=== PATIENT | male | born 1950 | race Caucasian/White ===

== ENCOUNTER 2018-02-15 14:13 | Inpatient (IN) | payer OTHER ==
[2018-02-15] MEDS ORDERED: NA CHLORIDE 0.9% 1,000 ML ONE (15:41)
[2018-02-15] MEDS ORDERED: FENTANYL CITR 100 MCG/2 ML ONE (15:41)
[2018-02-15 15:55] LABS: Absolute Lymphocytes (CBC) 0.9 K/uL (0.7-4.9); Absolute Monocytes 1.1 K/uL (0.1-1.3); Absolute Neutrophil 6.8 K/uL (1.8-8.0); Eosinophils % 2.7 % (0-4.4); Hematocrit 35.9 % (39.6-49.0); Lymphocytes % 9.6 % (15.3-44.8); MCH 26.7 pg (27.0-35.0); MCV 81.8 fL (80-100); Monocytes % 12.1 % (3.3-12.3); RBC Red Blood Cell Count 4.38 M/uL (4.33-5.43)
[2018-02-15 15:59] LABS: Protime INR 1.66
--- NOTE | 2018-02-15 16:11 | RAD REPORT ---
EXAM DESCRIPTION: RAD - Chest Single View - 02/15/2018 3:57 pm CLINICAL HISTORY: Persistent cough and congestion, abdominal distension COMPARISON: February 2016 TECHNIQUE: AP portable chest image was obtained 1553 hours . FINDINGS: Lung volumes are normal range. Sternotomy wires are in place new from the comparison. Medi al right base opacification is present new from the prior study. Right heart border is partially obsc ured. Hiatal hernia is evident. Heart and vasculature are normal. No measurable pleural effusion and no pneumothorax. No acute bony abnormality seen. No acute aortic findings suspected. IMPRESSION: Medial right base opacification most likely mild or early pneumonia.
[2018-02-15 16:16] LABS: Albumin 2.4 g/dL (3.4-5.0); Bilirubin Direct 0.5 mg/dL (0-0.2); Bilirubin Total 0.8 mg/dL (0.2-1.0); CKMB Creatine Kinase MB 1.4 ng/mL (0.3-3.6); Potassium 4.8 mmol/L (3.5-5.1); Protein, Total 5.9 g/dL (6.4-8.2); Troponin (Emerg Dept Use Only) 0.16 ng/mL (0.0-0.045)
--- NOTE | 2018-02-15 16:50 | EDPHYS ---
Physician Documentation [facility] Name: Parth Murdock Age: 67 yrs Sex: Male : 1950 Arrival Date: 02/15/2018 Time: 14:17 Bed 19 Private MD: ED Physician Navdeep Zavala HPI: 02/15 15:40 This 67 yrs old Male presents to ER via Ambulatory with complaints of Cough, snw Abdominal Pain. 15:40 The patient or guardian reports cough, that is intermittent. Onset: The snw symptoms/episode began/occurred 1 month(s) ago, and became persistent. Severity of symptoms: At their worst the symptoms were severe. Modifying factors: the symptoms are aggravated by exertion. Associated signs and symptoms: Pertinent positives: fever, abd pain. The patient has not experienced similar symptoms in the past. The patient has been recently seen by a physician: 4 day(s) ago, with different complaint(s), pt had "procedure" for removal of chicken bone from what pt states the right bronchus. Historical: - Allergies: 14:33 No Known Allergies; sv - Home Meds: 14:33 aspirin 81 mg Oral chew [Active]; Bumetanide Oral [Active]; spironolactone 25 mg Oral sv tab 1 tab once daily [Active]; digoxin 125 mcg Oral tab 1 tab once daily [Active]; Niacin Oral [Active]; Omeprazole Oral [Active]; Potassium Chloride Oral [Active]; Metoprolol Tartrate Oral [Active]; Ferrous Gluconate Oral [Active]; warfarin 5 mg Oral tab take 0.5 tab daily except take 1 tab on Tuesdays \\\\ Sundays [Active]; - PMHx: 14:33 Atrial Fib; CHF; Cirrhosis; sv - PSHx: 14:33 Hernia repair; sv - Immunization history:: Flu vaccine is up to date. - Social history:: Smoking status: Patient uses tobacco products, chewing tobacco. - Ebola Screening: : No symptoms or risks identified at this time. ROS: 15:37 Eyes: Negative for injury, pain, redness, and discharge, ENT: Negative for injury, snw pain, and discharge, Neck: Negative for injury, pain, and swelling, Cardiovascular: Negative for chest pain, palpitations, and edema, Respiratory: Negative for shortness of breath, + cough, wheezing, and pleuritic chest pain, Back: Negative for injury and pain, : Negative for injury, bleeding, discharge, and swelling, MS/Extremity: Negative for injury and deformity, Skin: Negative for injury, rash, and discoloration, Neuro: Negative for headache, weakness, numbness, tingling, and seizure. 15:37 Constitutional: Positive for body aches, fatigue, malaise, poor PO intake. 15:37 Abdomen/GI: Positive for abdominal pain. Exam: 15:35 Head/Face: Normocephalic, atraumatic. Eyes: Pupils equal round and reactive to light, snw extra-ocular motions intact. Lids and lashes normal. Conjunctiva and sclera are mildly icteric and not injected. Cornea within normal limits. Periorbital areas with no swelling, redness, or edema. ENT: Nares patent. No nasal discharge, no septal abnormalities noted. Tympanic membranes are normal and external auditory canals are clear. Oropharynx with no redness, swelling, or masses, exudates, or evidence of obstruction, uvula midline. Mucous membranes moist. Neck: Trachea midline, no thyromegaly or masses palpated, and no cervical lymphadenopathy. Supple, full range of motion without nuchal rigidity, or vertebral point tenderness. No Meningismus. Chest/axilla: Normal chest wall appearance and motion. Nontender with no deformity. No lesions are appreciated. 15:35 Respiratory: Lungs have equal breath sounds bilaterally, clear to auscultation and percussion. No rales, rhonchi or wheezes noted. No increased work of breathing, no retractions or nasal flaring. Abdomen/GI: Soft, tender to right upper and lower, with normal bowel sounds. Mild distension, no tympany. Voluntary guarding, no rebound. Back: No spinal tenderness. No costovertebral tenderness. Full range of motion. Skin: Warm, dry with normal turgor. Normal color with no rashes, no lesions, and no evidence of cellulitis. MS/ Extremity: Pulses equal, no cyanosis. Neurovascular intact. Full, normal range of motion. 15:35 Constitutional: The patient appears frail, in obvious pain, uncomfortable. 15:35 Cardiovascular: Rate: normal, Rhythm: irregularly irregular, Pulses: no pulse deficits are appreciated, Edema: generalized. 15:35 ECG was reviewed by the Attending Physician. 15:35 Neuro: Orientation: is normal, Mentation: is normal, Memory: is normal. Vital Signs: 14:35 BP 127 / 83; Pulse 69; Resp 20; Temp 98.2; Pulse Ox 96% ; Weight 74.39 kg; Height 5 ft. sv 10 in. (177.80 cm); Pain 6/10; 17:44 BP 135 / 80; Pulse 108; Resp 21; Pulse Ox 98% on R/A; aj 18:42 BP 134 / 83; Pulse 106 MON; Resp 20; Pulse Ox 95% on R/A; aj 19:32 BP 129 / 80; Pulse 111; Resp 20 S; Pulse Ox 98% on R/A; jd3 14:35 Body Mass Index 23.53 (74.39 kg, 177.80 cm) sv 18:42 A fib aj MDM: 15:06 Patient medically screened. snw 16:50 Data reviewed: vital signs, nurses notes, lab test result(s), EKG, radiologic studies. snw Data interpreted: Pulse oximetry: on room air is 96 %. Interpretation: acceptable. Counseling: I had a detailed discussion with the patient and/or guardian regarding: the historical points, exam findings, and any diagnostic results supporting the discharge/admit diagnosis, the presence of at least one elevated blood pressure reading (>120/80) during this emergency department visit, lab results, radiology results, the need for further work-up and treatment in the hospital. Physician consultation: Beatriz Bryant MD. 18:23 ED course: - Mrs. Murdock [phone]/ . snw 02/15 15:16 Order name: T\\T\\S; Complete Time: 16:42 snw 02/15 15:16 Order name: D-Dimer; Complete Time: 16:34 snw 02/15 15:16 Order name: C-Reactive Protein; Complete Time: 16:34 snw 02/15 15:16 Order name: Basic Metabolic Panel; Complete Time: 16:34 snw 02/15 15:16 Order name: Blood Culture Adult (2) snw 02/15 15:16 Order name: CBC with Diff; Complete Time: 16:34 snw 02/15 15:16 Order name: Ckmb; Complete Time: 16:34 snw 02/15 15:16 Order name: CPK; Complete Time: 16:34 snw 02/15 15:16 Order name: Lactate; Complete Time: 16:34 snw 02/15 15:16 Order name: LFT's; Complete Time: 16:34 snw 02/15 15:16 Order name: Lipase; Complete Time: 16:34 snw 02/15 15:16 Order name: Procalcitonin; Complete Time: 16:45 snw 02/15 15:16 Order name: Protime (+inr); Complete Time: 16:34 snw 02/15 15:16 Order name: Ptt, Activated; Complete Time: 16:34 snw 02/15 15:16 Order name: Troponin (emerg Dept Use Only); Complete Time: 16:34 snw 02/15 15:16 Order name: Urine Microscopic Only snw 02/15 15:16 Order name: Chest Single View XRAY; Complete Time: 16:34 snw 02/15 15:16 Order name: Cardiac monitoring; Complete Time: 15:41 snw 02/15 15:16 Order name: EKG - Nurse/Tech; Complete Time: 15:41 snw 02/15 15:16 Order name: IV Saline Lock - Large Bore; Complete Time: 15:41 snw 02/15 15:16 Order name: AMMONIA; Complete Time: 16:34 snw 02/15 15:40 Order name: CT Chest, Abdomen, Pelvis - W/Contrast; Complete Time: 17:18 snw 02/15 16:42 Order name: ABO/RH no charge; Complete Time: 16:42 EDMS 02/15 19:31 Order name: Urine Dipstick--Ancillary (enter results) ms 02/15 15:16 Order name: Labs collected and sent; Complete Time: 15:41 snw 02/15 15:16 Order name: O2 Per Protocol; Complete Time: 15:41 snw 02/15 15:16 Order name: O2 Sat Monitoring; Complete Time: 15:41 snw Administered Medications: 15:40 Drug: fentaNYL (PF) 50 mcg Route: IVP; Site: right forearm; aj 16:30 Follow up: Response: No adverse reaction; Pain is decreased aj 15:40 Drug: NS 0.9% 1000 ml Route: IV; Rate: 50 ml/hr; Site: right forearm; aj 19:52 Follow up: Response: No adverse reaction; IV Status: Infusion continued upon admission jd3 17:30 Drug: Rocephin 1 grams Route: IV; Rate: calculated rate; Site: right forearm; aj 17:35 Follow up: Response: No adverse reaction; IV Status: Completed infusion; IV Intake: 10mlaj 17:31 Drug: Tussionex Pennkinetic ER 5 ml Route: PO; aj 17:44 Follow up: Response: No adverse reaction Disposition: 02/16 15:34 Co-signature as Attending Physician, Navdeep Zavala MD. Disposition: 02/15/18 16:50 Hospitalization ordered by Beatriz Bryant for Inpatient Admission. Preliminary diagnosis are Pneumonia, unspecified organism, Unspecified abdominal pain, Atrial fibrillation and flutter. - Bed requested for Telemetry/MedSurg (Inpatient). - Status is Inpatient Admission. jd3 - Condition is Stable. - Problem is new. - Symptoms are unchanged. UTI on Admission? No Signatures: Dispatcher [facility] Megan Porter RN RN sv Woody, Diana, RN RN dw Myers, Amanda, RN RN aj Therrien, Shelly, [employer]INCIPAL-C [employer] PRINCIPAL-Csnw Navdeep Zavala MD MD Reyes Rasmussen RN RN jd3 Corrections: (The following items were deleted from the chart) 02/15 15:17 15:16 BILIRUBIN, DIRECT+C.LAB.BRZ ordered. [facility] 18:17 16:50 Hospitalization Ordered by Beatriz Bryant MD for Inpatient Admission. Preliminary diagnosis is Pneumonia, unspecified organism; Unspecified abdominal pain; Atrial fibrillation and flutter. Bed requested for Telemetry/MedSurg (Inpatient). Status is Inpatient Admission. Condition is Stable. Problem is new. Symptoms are unchanged. UTI on Admission? No. snw 18:24 18:23 ED course: - Mrs. Murdock [phone]. snw snw 20:12 18:17 02/15/2018 16:50 Hospitalization Ordered by Beatriz Bryant MD for Inpatient jd3 Admission. Preliminary diagnosis is Pneumonia, unspecified organism; Unspecified abdominal pain; Atrial fibrillation and flutter. Bed requested for Telemetry/MedSurg (Inpatient). Status is Inpatient Admission. Condition is Stable. Problem is new. Symptoms are unchanged. UTI on Admission? No. dw
--- NOTE | 2018-02-15 16:50 | ER ---
Nurse's Notes [facility] Name: Parth Murdock Age: 67 yrs Sex: Male : 1950 Arrival Date: 02/15/2018 Time: 14:17 Bed 19 Private MD: Diagnosis: Pneumonia, unspecified organism;Unspecified abdominal pain;Atrial fibrillation and flutter Presentation: 02/15 14:24 Presenting complaint: Patient states: cough x 2 months after having a procedure done. sv c/o abd pain with cough. Tylenol given at 1200 Tmax 100.3. Transition of care: patient was not received from another setting of care. Onset of symptoms was November 2017. Care prior to arrival: None. 14:24 Method Of Arrival: Ambulatory sv 14:24 Acuity: ZBIGNIEW 3 sv 18:40 Risk Assessment: Do you want to hurt yourself or someone else? Patient reports no aj desire to harm self or others. 18:41 Initial Sepsis Screen: Does the patient meet any 2 criteria? HR > 90 bpm. Does the aj patient have a suspected source of infection? Yes:. Triage Assessment: 14:33 General: Appears in no apparent distress. uncomfortable, Behavior is calm, cooperative, sv appropriate for age. Pain: Complains of pain in abdomen Pain currently is 6 out of 10 on a pain scale. Is continuous, Noted to be guarding. Neuro: Level of Consciousness is awake, alert, obeys commands, Oriented to person, place, time, situation, Moves all extremities. Full function Gait is steady. Respiratory: Respiratory effort is even, unlabored, Respiratory pattern is regular, symmetrical. Respiratory: Reports cough that is productive, white and yellow in color. GI: Reports lower abdominal pain, upper abdominal pain. Historical: - Allergies: 14:33 No Known Allergies; sv - Home Meds: 14:33 aspirin 81 mg Oral chew [Active]; Bumetanide Oral [Active]; spironolactone 25 mg Oral sv tab 1 tab once daily [Active]; digoxin 125 mcg Oral tab 1 tab once daily [Active]; Niacin Oral [Active]; Omeprazole Oral [Active]; Potassium Chloride Oral [Active]; Metoprolol Tartrate Oral [Active]; Ferrous Gluconate Oral [Active]; warfarin 5 mg Oral tab take 0.5 tab daily except take 1 tab on Tuesdays \\ Sundays [Active]; - PMHx: 14:33 Atrial Fib; CHF; Cirrhosis; sv - PSHx: 14:33 Hernia repair; sv - Immunization history:: Flu vaccine is up to date. - Social history:: Smoking status: Patient uses tobacco products, chewing tobacco. - Ebola Screening: : No symptoms or risks identified at this time. Screenin:53 Abuse screen: Denies threats or abuse. Denies injuries from another. Nutritional aj screening: No deficits noted. Tuberculosis screening: No symptoms or risk factors identified. Fall Risk None identified. Assessment: 14:53 General: Appears in no apparent distress. uncomfortable, Behavior is calm, cooperative, aj appropriate for age. Pain: Complains of pain in right upper quadrant and right lower quadrant. Neuro: Level of Consciousness is awake, alert, obeys commands, Oriented to person, place, time, situation, Appropriate for age. Respiratory: Airway is patent Respiratory effort is even, unlabored, Respiratory pattern is regular, symmetrical. Respiratory: Reports cough that is productive. GI: Abdomen is round Abdomen is tender to palpation in right upper quadrant and right lower quadrant. Derm: Skin is intact, is healthy with good turgor, Skin is pink, warm \T\ dry. normal. 18:41 GI: aj 19:32 Reassessment: Patient appears in no apparent distress at this time. No changes from jd3 previously documented assessment. Patient and/or family updated on plan of care and expected duration. Pain level reassessed. Patient is alert, oriented x 3, equal unlabored respirations, skin warm/dry/pink. Vital Signs: 14:35 BP 127 / 83; Pulse 69; Resp 20; Temp 98.2; Pulse Ox 96% ; Weight 74.39 kg; Height 5 ft. sv 10 in. (177.80 cm); Pain 6/10; 17:44 BP 135 / 80; Pulse 108; Resp 21; Pulse Ox 98% on R/A; aj 18:42 BP 134 / 83; Pulse 106 MON; Resp 20; Pulse Ox 95% on R/A; aj 19:32 BP 129 / 80; Pulse 111; Resp 20 S; Pulse Ox 98% on R/A; jd3 14:35 Body Mass Index 23.53 (74.39 kg, 177.80 cm) sv 18:42 A fib aj ED Course: 14:17 Patient arrived in ED. [id number] 14:28 Rubia Santo, RN is Primary Nurse. aj 14:31 Triage completed. sv 14:35 Arm band placed on Patient placed in an exam room, on a stretcher, on pulse oximetry. sv 14:53 Patient has correct armband on for positive identification. Bed in low position. Adult aj w/ patient. 15:00 EKG done, by ED staff, reviewed by Navdeep Zavala MD. aa5 15:05 Ellen Matamoros FNP-C [facility]. snw 15:05 Navdeep Zavala MD is Attending Physician. snw 15:10 price lister on. Pulse ox on. NIBP on. aa5 15:30 Inserted saline lock: 20 gauge in right forearm, using aseptic technique. Blood aa5 collected. 15:30 Initial lab(s) drawn, by me, sent to lab. First set of blood cultures drawn by me. aa5 15:47 Second set of blood cultures drawn by me. aa5 15:55 Radiology exam delayed due to lab results not completed at this time. (BUN/Creatinine). cw1 15:56 X-ray completed. Portable x-ray completed in exam room. Patient tolerated procedure ls3 well. 15:58 Chest Single View XRAY In Process Unspecified. EDMS 16:14 Safety checks: Items removed:. mh5 16:49 Beatriz Bryant MD is Hospitalizing Provider. snw 16:50 CT Chest, Abdomen, Pelvis - W/Contrast In Process Unspecified. EDMS 16:50 CT completed. Patient tolerated procedure well. Patient moved back from CT. bq 18:41 No provider procedures requiring assistance completed. aj 19:13 Urine collected: clean catch specimen, nilsa colored. cb2 19:52 Patient admitted, IV remains in place. jd3 Administered Medications: 15:40 Drug: fentaNYL (PF) 50 mcg Route: IVP; Site: right forearm; aj 16:30 Follow up: Response: No adverse reaction; Pain is decreased aj 15:40 Drug: NS 0.9% 1000 ml Route: IV; Rate: 50 ml/hr; Site: right forearm; aj 19:52 Follow up: Response: No adverse reaction; IV Status: Infusion continued upon admission jd3 17:30 Drug: Rocephin 1 grams Route: IV; Rate: calculated rate; Site: right forearm; aj 17:35 Follow up: Response: No adverse reaction; IV Status: Completed infusion; IV Intake: 10mlpreet 17:31 Drug: Tussionex Pennkinetic ER 5 ml Route: PO; aj 17:44 Follow up: Response: No adverse reaction aj Intake: 17:35 IV: 10ml; Total: 10ml. preet Outcome: 16:50 Decision to Hospitalize by Provider. snw 19:51 Admitted to Tele accompanied by tech, via wheelchair, room 425, with chart, Report jd3 called to Laure LOMBARDO 19:51 Condition: stable 19:51 Instructed on the need for admit, Demonstrated understanding of instructions. 20:12 Patient left the ED. violette Signatures: Dispatcher [employer] Megan Puentes, RN Rubia Pimentel RN Ellen Ramirez, FLATWORK FOLDER-C FLATWORK FOLDER-Csnw Jenni Olivera Audri RN RN [email or web address] Sheri Connors cw1 Cary Bob4 Jasmina Moran [facility] Hao Aranda Jonathon RN RN jd3 Marcos Huizar3
--- NOTE | 2018-02-15 17:17 | RAD REPORT ---
EXAM DESCRIPTION: CT - Chest Abdomen Pelvis W Cont - 02/15/2018 4:50 pm CLINICAL HISTORY: Chest pain, abdominal pain COMPARISON: Chest films same date TECHNIQUE: Following dynamic enhancement using 100 milliliters nonionic IV contrast, axial imaging o f the chest, abdomen and pelvis was performed. Biphasic technique was utilized through the abdomen. Oral contrast was administered. All CT scans are performed using dose optimization technique as appropriate and may include automated exposure control or mA/KV adjustment according to patient size. FINDINGS: Left lung field is clear. No left-sided pleural effusion, pneumothorax or pleural based ab normality. A small to moderate right pleural effusion is present. Right perihilar lymph nodes are pre sent. Partial atelectasis of the posterior inferior right lower lobe noted. There is lung parenchymal opacification in the right middle lobe. There is partial opacification of the right middle lobe bron chus. Minimal amount of loculated pleural fluid is seen at the anterior right lung base. Old rib trauma changes are noted on the right. No acute rib fracture confirmed. No significant aortic or pulmonary arterial tree finding. No mediastinal or contralateral hilar lymp hadenopathy. No pericardial effusion. No axillary lymphadenopathy. Sternotomy wires are in place. The re is incomplete bony bridging of the sternum which may be a chronic nonunion or relatively recent cruz rgery. Liver shows a nodular liver capsule contour. No focal liver lesions seen except for a small cyst in t he inferior right lobe. No splenomegaly. No pancreatic acute finding identifiable. There is a 2 centi meter homogeneous fluid attenuation thin-walled cyst between the tip of the pancreatic tail and splee n. No other pancreatic associated finding. Cholecystectomy clips are present. No biliary tree dilatat ion. Symmetric renal function is seen with no mass or hydronephrosis. No adrenal abnormalities. No pyelone phritis or acute renal parenchymal process. Small renal cysts are present. No acute urinary bladder f inding. Prostate gland and seminal vesicles normal range. No dilated bowel loops or focal bowel wall thickening. No acute GI findings seen. No acute or destructive bony process. Scattered degenerative changes are present. Patient has a very large right-side rectus hematoma. Maximum cross-sectional dimensions are 11 x 8 cm . This runs the entire length of the muscle from the lower ribcage to the pubic symphysis. There is a minimal amount of blood extends between the muscle and the bladder in the lower pelvis. No significant vascular findings. IMPRESSION: Very large right rectus hematoma 11 x 8 cm in cross-sectional dimension and running the entire length of the muscle from ribcage to the pubic symphysis. There is a small amount of free hemo rrhage near the pubic symphysis insertion site between the muscle belly and the urinary bladder. Small right middle lobe pneumonia and partial atelectasis. Right perihilar reactive lymph nodes are p resent. A small to moderate right pleural effusion is present with a small amount of loculated pleural fluid adjacent to the pneumonia anterior right base. No malignant mass or lymphadenopathy identifiable in the chest. Nodular contour to the liver. Correlation is needed with any cirrhosis or diffuse hepatic parenchymal disease process. Small homogeneous cystic mass between the pancreatic tail and the spleen. It is uncertain if this is a pancreatic origin mass. This can be monitored on a followup study in 6 months. Sternotomy wires are in place with no bony union at the sternotomy site. This could be a chronic nonu nion or relatively recent surgery.
[2018-02-15] MEDS ORDERED: HYDROCODONE/CHLORPHEN 5 ML/OSYR ONE (17:32)
[2018-02-15] MEDS ORDERED: CEFTRIAXONE/SWI 1gm 1 GM/10 ML SYR ONE (17:35)
[2018-02-15] MEDS ORDERED: Levofloxacin500mg IV 500 MG/100 ML BAG IV SCH (19:52)
[2018-02-15] MEDS ORDERED: ONDANSETRON 4 MG/2 ML VIAL IV PRN (19:52)
[2018-02-15] MEDS ORDERED: ACETAMINOPHEN 500 MG TAB PO PRN (19:52)
[2018-02-15 22:48] VITALS: BMI 23.5
[2018-02-15] MEDS ORDERED: FENTANYL CITR 100 MCG/2 ML IV PRN (23:32)
[2018-02-16] MEDS: METOPROLOL TAR 50 MG TAB PO SCH ×2 (00:21→20:51)
[2018-02-16] MEDS: HYDROCODONE/CHLORPHEN 5 ML/OSYR PO SCH ×5 (00:24→20:51)
[2018-02-16] MEDS ORDERED: HYDROMORPHONE HCL 1 MG/ML INJ IV ONE (02:22)
[2018-02-16 04:23] LABS: Absolute Lymphocytes (CBC) 0.6 K/uL (0.7-4.9); Absolute Monocytes 1.1 K/uL (0.1-1.3); Absolute Neutrophil 9.2 K/uL (1.8-8.0); Basophils % 0.3 % (0-1.3); Eosinophils % 1.1 % (0-4.4); Hematocrit 33.4 % (39.6-49.0); Lymphocytes % 5.7 % (15.3-44.8); MCH 26.7 pg (27.0-35.0); MCV 82.6 fL (80-100); MPV 7.1 fL (7.6-11.3); Monocytes % 9.7 % (3.3-12.3); RBC Red Blood Cell Count 4.05 M/uL (4.33-5.43)
[2018-02-16 04:36] LABS: Albumin 2.4 g/dL (3.4-5.0); Bilirubin Total 0.8 mg/dL (0.2-1.0); Potassium 5.2 mmol/L (3.5-5.1); Protein, Total 5.9 g/dL (6.4-8.2)
[2018-02-16] MEDS ORDERED: METHYLPREDNISOLONE 125 MG INJ IV ONE (05:49)
[2018-02-16] MEDS ORDERED: ALBUTEROL 2.5 MG/3 ML NEB SOL NEB PRN (05:49)
[2018-02-16] MEDS ORDERED: HYDROMORPHONE HCL 1 MG/ML INJ IV PRN (05:49)
--- NOTE | 2018-02-16 05:51 | P.HP ---
Certification for Inpatient Patient admitted to: Inpatient With expected LOS: >2 Midnights Patient will require the following post-hospital care: None Practitioner: I am a practitioner with admitting privileges, knowledge of patient current condition, hospital course, and medical plan of care. Services: Services provided to patient in accordance with Admission requirements found in Title 42 Section 412.3 of the Code of Federal Regulations Patient History Date of Service: 02/15/18 Reason for admission: Rectus sheath hematoma History of Present Illness: Patient is a 67-year-old gentleman who came into the hospital with severe abdominal discomfort. Patient's pain was in the right lower quadrant. He apparently has been coughing quite a bit of the last few weeks. According to his history he had a chicken bone that was stuck in his lungs. He had to be off of Coumadin before they could remove it. Patient had this removed over at the [facility]. However, he continues to cough quite a bit. He resumed his Coumadin a few days ago. He is been cough in quite a bit. He noticed yesterday that his abdomen was getting more distended. He told his he needed to go into the emergency room because he was having excruciating pain. In the emergency room his workup revealed a pneumonia as well as a rectus sheath hematoma which was very large. His official CT scan report is listed below: 1. Very large right rectus hematoma 11 x 8 cm in cross-sectional dimension and running the entire length of the muscle from ribcage to the pubic symphysis. There is a small amount of free hemorrhage near the pubic symphysis insertion site between the muscle belly and the urinary bladder. 2. Small right middle lobe pneumonia and partial atelectasis. Right perihilar reactive lymph nodes are present. 3. A small to moderate right pleural effusion is present with a small amount of loculated pleural fluid adjacent to the pneumonia anterior right base. Patient states he has held his Coumadin for a couple of days. Luckily, his INR is sub therapeutic at this time. Allergies No Known Allergies Allergy (Unverified 02/15/18 20:03) Home Medications: Digoxin [Lanoxin*] 0.125 mg PO DAILY 03/11/16 Niacin [Niaspan] 750 mg PO BID 03/11/16 Warfarin Sodium [Coumadin*] 2.5 mg PO 1700 03/11/16 Aspirin [Adult Aspirin] 81 mg PO DAILY 02/15/18 Bumetanide 0.5 mg PO BID 02/15/18 Ferrous Gluconate 324 mg PO DAILY 02/15/18 Metoprolol Tartrate 25 mg PO BID 02/15/18 Omeprazole 20 mg PO DAILY 02/15/18 Potassium Chloride [K-Tab ER] 20 meq PO BID 02/15/18 Spironolactone [Aldactone] 25 mg PO DAILY 02/15/18 - Past Medical/Surgical History Has patient received pneumonia vaccine in the past: Yes Diabetic: No -: Hypertension -: Atrial fibrillation -: Chronic anti coagulation -: Neuropathy -: Hyperlipidemia -: History of DVT -: Vertigo -: Familial hypoalphaproteinemia -: CHF -: Cirrhosis -: Heart catheterization 10 years ago -: hernia repair Psychosocial/ Personal History: He is , has 2 children, he is retired diesel mechanic construction - Family History Father Family History: Reviewed- Non-Contributory - Social History Smoking Status: Never smoker Alcohol use: No CD- Drugs: No Caffeine use: Yes Place of Residence: Home Review of Systems 10-point ROS is otherwise unremarkable Respiratory: Hemoptysis, Pleuritic Pain Gastrointestinal: Abdominal Pain Genitourinary: Dysuria Physical Examination - Vital Signs Temperature: 98.2 F Blood Pressure: 130/74 Pulse: 107 Respirations: 20 Pulse Ox (%): 95 - Physical Exam General: Alert, In no apparent distress, Oriented x3 HEENT: Atraumatic, PERRLA, Mucous membr. moist/pink, EOMI, Sclerae nonicteric Neck: Supple, 2+ carotid pulse no bruit, No LAD, Without JVD or thyroid abnormality Respiratory: Diminished, Crackles/rales, Expiratory wheezes Cardiovascular: Regular rate/rhythm, Normal S1 S2, Systolic murmur Gastrointestinal: Normal bowel sounds, Soft and benign, Non-distended, No tenderness Musculoskeletal: No clubbing, No swelling, No tenderness Integumentary: No rashes Neurological: Normal gait, Normal speech, Normal tone, Sensation intact, Cranial nerves 3-12 intact, Normal affect, Abnormal strength Lymphatics: No axilla or inguinal lymphadenopathy - Studies Laboratory Data (last 24 hrs) 02/15/18 15:30: WBC 9.1, Hgb 11.7 L, Hct 35.9 L, Plt Count 341 02/15/18 15:30: Sodium 134 L, Potassium 4.8, BUN 22 H, Creatinine 1.10, Glucose 115 H, Total Bilirubin 0.8, AST 48 H, ALT 46, Alkaline Phosphatase 321 H, Lipase 173 02/15/18 15:30: PT 19.7 H, INR 1.66, APTT 33.3 Assessment & Plan - Problems (Diagnosis) (1) Rectus sheath hematoma Current Visit: Yes Status: Acute (2) Pneumonia Current Visit: Yes Status: Acute (3) Hemoptysis Current Visit: Yes Status: Acute (4) Pleural effusion Current Visit: Yes Status: Acute (5) Atrial fibrillation Onset Date: 03/12/16 Current Visit: No Status: Chronic Qualifiers: Atrial fibrillation type: chronic Qualified Code(s): I48.2 - Chronic atrial fibrillation (6) Hyperlipidemia Onset Date: 03/12/16 Current Visit: No Status: Chronic Qualifiers: Hyperlipidemia type: unspecified Qualified Code(s): E78.5 - Hyperlipidemia , unspecified (7) Hypertension Onset Date: 03/12/16 Current Visit: No Status: Chronic Qualifiers: Hypertension type: essential hypertension Qualified Code(s): I10 - Essential (primary) hypertension - Plan Plan: 1. Continue with IV antibiotics 2. Await sputum and blood culture 3. Repeat chest x-ray 4. Pulmonary consultation 5. Continue with nebs as needed 6. O2 per protocol 7. Antitussives 8. Repeat labs including CBC and renal function in a.m. 9. Vitamin K to keep INR less than 1.5 10. General surgery consultation 11. GI prophylaxis and DVT prophylaxis with SCDs for now - Advance Directives Does patient have a Living Will: Yes Does patient have a Durable POA for Healthcare: Yes - Code Status/Comfort Care Code Status Assessed: Yes Code Status: Full Code Critical Care: No Time Spent Managing PTS Care (In Minutes): 50
[2018-02-16] MEDS ORDERED: PIPER/TAZO/NS 3.375gm 3.375 GM/100 ML BAG IVPB SCH (06:00)
[2018-02-16] MEDS ORDERED: VITAMIN K (ADULT) 10 MG/ML SQ ONE (06:00)
[2018-02-16] MEDS ORDERED: PIPER/TAZO/NS 3.375gm 3.375 GM/100 ML BAG ONE (06:23)
[2018-02-16] MEDS: DIGOXIN 0.125 MG TABLET PO SCH (08:47)
[2018-02-16] MEDS: SPIRONOLACTONE 25 MG TABLET PO SCH (08:48)
[2018-02-16] MEDS: FERROUS SULFATE 325 MG TAB PO SCH (08:48)
[2018-02-16] MEDS: PANTOPRAZOLE 40MG TABLET PO SCH (08:51)
[2018-02-16] MEDS: NIACIN 750 MG PO SCH ×2 (08:54→20:50)
--- NOTE | 2018-02-16 09:08 | EKG ---
Test Date: 2018-02-15 Test Time: 15:22:03 Catcher Helper: CHERELLE MEASUREMENT RESULTS: Intervals: Rate: 87 ND: QRSD: 146 QT: 398 QTc: 478 Partridge: P: ND: QRS: 86 T: -30 INTERPRETIVE STATEMENTS: Atrial fibrillation Right bundle branch block Abnormal ECG Compared to ECG 03/12/2016 07:14:08 Right bundle-branch block now present ST (T wave) deviation no longer present T-wave abnormality no longer present Electronically Signed On 02-16-18 09:08:12 CDT by Tim Henry
[2018-02-16 09:42] LABS: Urine Appearance CLEAR; Urine Blood NEGATIVE (NEG); Urine Color DK YELLOW; Urine Glucose NEGATIVE (NEG); Urine Protein TRACE (NEG); Urine Specific Gravity >=1.030 (1.005-1.030)
[2018-02-16 09:55] LABS: Urine Bilirubin 1+ (NEG)
[2018-02-16 09:56] LABS: Urine Microscopic Reflex ORDER UMIC
[2018-02-16 10:48] LABS: Urine Bacteria NONE SEEN /HPF (NONE SEEN); Urine RBC <5 /HPF (NONE SEEN)
[2018-02-16 10:49] LABS: Urine Culture Reflex Order NOT NEEDED
--- NOTE | 2018-02-16 11:46 | P.PN ---
Subjective Date of Service: 02/16/18 Chief Complaint: Rectus sheath hematoma Pt seen and examined at bedside with RN. Chart reviewed. Case DW Patient and Surgery today. complains of having Abd pain. Review of Systems 10-point ROS is otherwise unremarkable Physical Examination - Vital Signs Temperature: 97.4 F Blood Pressure: 142/66 Pulse: 129 Respirations: 18 Pulse Ox (%): 93 - Physical Exam General: Alert, In no apparent distress HEENT: Atraumatic, PERRLA, EOMI Neck: Supple, JVD not distended Respiratory: Clear to auscultation bilaterally, Normal air movement Cardiovascular: Regular rate/rhythm, Normal S1 S2 Gastrointestinal: Normal bowel sounds, Tenderness Musculoskeletal: No tenderness Integumentary: No rashes Neurological: Normal speech, Normal tone, Normal affect Lymphatics: No axilla or inguinal lymphadenopathy - Studies Laboratory Data (last 24 hrs) 02/15/18 15:30: WBC 9.1, Hgb 11.7 L, Hct 35.9 L, Plt Count 341 02/15/18 15:30: Sodium 134 L, Potassium 4.8, BUN 22 H, Creatinine 1.10, Glucose 115 H, Total Bilirubin 0.8, AST 48 H, ALT 46, Alkaline Phosphatase 321 H, Lipase 173 02/15/18 15:30: PT 19.7 H, INR 1.66, APTT 33.3 Medications List Reviewed: Yes Assessment And Plan - Current Problems (Diagnosis) (1) Pneumonia Onset Date: 02/16/18 Current Visit: Yes Status: Acute Plan: left PNA most likely viral -Procal Negative -Continue to Monitor Closely -DC abx Once culture negative Qualifiers: Pneumonia type: due to unspecified organism Laterality: left Lung location: unspecified part of lung Qualified Code(s): J18.9 - Pneumonia, unspecified organism (2) Rectus sheath hematoma Onset Date: 02/16/18 Current Visit: Yes Status: Acute Plan: Nontraumatic Rectur Sheath heamtoma from ribcage to the Pelvis -Surgery Consulted. Awaiting reccs -Monitor H/H closely -Hold Coumadin for now Qualifiers: Encounter type: initial encounter Qualified Code(s): S30.1XXA - Contusion of abdominal wall, initial encounter (3) Atrial fibrillation Onset Date: 03/12/16 Current Visit: No Status: Chronic Plan: Chronic afib -rate controlled -Hold anticoagulation for now Qualifiers: Atrial fibrillation type: chronic Qualified Code(s): I48.2 - Chronic atrial fibrillation (4) Hyperlipidemia Onset Date: 03/12/16 Current Visit: No Status: Chronic Qualifiers: Hyperlipidemia type: unspecified Qualified Code(s): E78.5 - Hyperlipidemia , unspecified (5) Hypertension Onset Date: 03/12/16 Current Visit: No Status: Chronic Qualifiers: Hypertension type: essential hypertension Qualified Code(s): I10 - Essential (primary) hypertension Discharge Plan: Home Plan to discharge in: Greater than 2 days - Code Status/Comfort Care Code Status Assessed: Yes Critical Care: No
[2018-02-16 11:58] LABS: Absolute Lymphocytes (CBC) 0.3 K/uL (0.7-4.9); Absolute Monocytes 0.2 K/uL (0.1-1.3); Absolute Neutrophil 10.7 K/uL (1.8-8.0); Hematocrit 33.2 % (39.6-49.0); Lymphocytes % 2.6 % (15.3-44.8); MCH 26.7 pg (27.0-35.0); MCV 81.5 fL (80-100); MPV 6.8 fL (7.6-11.3); Monocytes % 1.4 % (3.3-12.3); RBC Red Blood Cell Count 4.07 M/uL (4.33-5.43)
[2018-02-16 11:59] LABS: Protime INR 1.59
[2018-02-16 12:09] LABS: Magnesium 2.4 mg/dL (1.8-2.4); Phosphorus 4.1 mg/dL (2.5-4.9); Potassium 4.7 mmol/L (3.5-5.1)
[2018-02-16 12:39] LABS: Blood Morphology Comment NOT SEEN (NOT SEEN); Platelet Estimate ADEQ; Urine White Blood Cell Casts OK
[2018-02-16] MEDS: PIPER/TAZO/NS 3.375gm 3.375 GM/100 ML BAG IVPB SCH (13:20)
--- NOTE | 2018-02-16 17:10 | CON ---
Date of Consultation: 02/16/2018 Reason: Right rectus sheath hematoma. History Of Present Illness: The patient is a 67-year-old gentleman who came in with right-sided abdo albaro pain. He has recently been coughing quite a bit. He is on anticoagulation. He had [facility] and he noticed the right side of the abdomen was becoming m ore distended therefore he came to the ER, had a CT of the chest, abdomen and pelvis. The findings r evealed pneumonia as well as a rectus sheath hematoma. No sore throat, runny nose, headaches, dizzin ess, fever or chills. No chest pain. Review of Systems: Otherwise unremarkable. Past Medical History: Significant for hypertension, Afib, chronic anticoagulation, neuropathy, hyper lipidemia, history DVT, vertigo, CHF, cirrhosis. Past Surgical History: Heart catheterization and hernia repair. Allergies: NONE. Social History: Does not smoke. Does not drink alcohol. Family History: Noncontributory. Physical Examination: Vital Signs: His vital signs are significant for elevated heart rate but he is afebrile, blood press ure is adequate. General: He is awake, alert, and oriented x3. Head and Neck: Cranial nerves 2 through 12 grossly within normal limits. No neck masses. No JVD. Throat clear. Neck supple. Chest: Clear. Heart: S1, S2. Abdomen: Soft, on the left side. On the right side, it is slightly distended and tender from below the ribs all the way down near the pubis. There is swelling noted on that side. There is no redness , warmth, and apparently this has not changed within the last 24 hours. His anticoagulation has been stopped. EXTREMITY: Adequately perfused. Nontender. Neuro: Nonfocal. Diagnostic Data: White count is 11.1. His H and H was 11.7 and 35.9 yesterday, at 3:30 today it is 10.8 and 33.4, platelets are 337, INR is 1.66 an INR today is pending. CT of the chest, abdomen and pelvis shows large rectus sheath hematoma 11 x 8 cm in cross-sectional dimension running the entire l ength of the muscle from rib cage to the pubic symphysis. Small amount of free hemorrhage near the p ubic symphysis insertion site between the muscle belly and ring bladder, small right middle lobe pneu monia with partial atelectasis and right perihilar reactive lymph nodes are present, small to moderat e right pleural effusion. The patient apparently had a CABG before as he has sternotomy wires. Assessment: A 67-year-old gentleman with multiple medical problems with a rectus sheath hematoma. Recommendations: At this time stop the anticoagulation. I do not think any other further surgical i ntervention is indicated, once this has stabilized, I believe the etiology was persistent coughing. The patient needs to be on cough medicine, to get his pneumoniae treated and if his H and H remain st able he will not need any intervention. THEO/PAMELA Voice ID: [id number] Report ID: [id number]
[2018-02-17] MEDS: PIPER/TAZO/NS 3.375gm 3.375 GM/100 ML BAG IVPB SCH ×3 (00:57→16:47)
[2018-02-17 06:48] LABS: Absolute Lymphocytes (CBC) 1.1 K/uL (0.7-4.9); Absolute Monocytes 1.2 K/uL (0.1-1.3); Absolute Neutrophil 20.9 K/uL (1.8-8.0); Basophils % 0.1 % (0-1.3); Hematocrit 32.4 % (39.6-49.0); Lymphocytes % 4.6 % (15.3-44.8); MCH 26.5 pg (27.0-35.0); MCV 83.5 fL (80-100); RBC Red Blood Cell Count 3.89 M/uL (4.33-5.43)
[2018-02-17 07:08] LABS: Albumin 2.4 g/dL (3.4-5.0); Bilirubin Total 0.8 mg/dL (0.2-1.0); Potassium 4.5 mmol/L (3.5-5.1)
[2018-02-17] MEDS ORDERED: VANCOMYCIN 1 GM in NA CHLORIDE 0.9% 500 ML IVPB SCH (08:00)
[2018-02-17] MEDS: PANTOPRAZOLE 40MG TABLET PO SCH (08:27)
[2018-02-17] MEDS: HYDROCODONE/CHLORPHEN 5 ML/OSYR PO SCH ×4 (08:27→21:04)
[2018-02-17] MEDS: NIACIN 750 MG PO SCH ×2 (08:27→21:03)
[2018-02-17] MEDS: DIGOXIN 0.125 MG TABLET PO SCH (08:28)
[2018-02-17] MEDS: FERROUS SULFATE 325 MG TAB PO SCH (08:28)
[2018-02-17] MEDS: METOPROLOL TAR 50 MG TAB PO SCH ×2 (08:28→21:03)
[2018-02-17] MEDS: SPIRONOLACTONE 25 MG TABLET PO SCH (08:28)
[2018-02-17] MEDS: VANCOMYCIN 1.25 GM in NA CHLORIDE 0.9% 250 ML IVPB SCH (09:59)
--- NOTE | 2018-02-17 18:00 | PN ---
Date of Progress Note: 02/17/2018 Subjective: Patient is awake, alert. No knee complaints. Vital signs are stable, afebrile. White count has jumped up to 27,000; however, H and H is stable. His abdomen actually, he states, feels be tter. Vital signs are stable. He is afebrile. Objective: On physical exam, there is no significant change. Assessment: Rectus abdominis sheath hematoma. Recommendation: The patient is cleared from surgery for anticoagulation per cardiology's recommendat ions. No need for any acute surgical intervention. The patient is urinating well. There is no seco ndary effect that needs to be treated. His white count elevation is due to high-dose steroids that t he patient received yesterday. Will follow the patient while in the hospital. /MODL Voice ID: [id number] Report ID: [id number]
[2018-02-17 20:02] LABS: Protime INR 1.13
[2018-02-17] MEDS: POLYETHYL GLY 3350 17 GM/DOSE PO PRN (21:16)
--- NOTE | 2018-02-17 23:37 | PN ---
Date of Progress Note: 02/17/2018 Subjective: The patient seen and examined. Chart reviewed, and case discussed with RN, Dr. Chelo Packer. at the bedside. Treatment plan explained and all questions answered. The patie nt is still having some cough and some pain and swelling in the abdomen. Review of Systems: Negative except as above. Medications: List reviewed. Code Status: Full code. Physical Examination: Vital Signs: Temperature 97.3, heart rate 91, blood pressure 130/70, respirations 18, O2 94% on room air. General: Awake, alert, oriented x3, in some mild distress, elderly male ill appearing. CV: S1, S2. Irregularly irregular. Peripheral pulses present. Respiratory: Moving air well bilaterally. No wheezing or stridor. Gastrointestinal: Abdomen is distended, some mild tenderness to palpation in the right upper and low er quadrant due to hematoma. Bowel sounds positive. Ecchymoses present. Extremities: No clubbing, cyanosis, edema. Neuro: Nonfocal. Laboratory Data: Sodium 131, potassium 4.5, chloride 97, CO2 24, BUN 1.2, glucose 155, lactate 1.5, calcium 8.1, albumin 2.4, procalcitonin 0.09. Lactate 1.5. WBC 23.1, H and H 10.3/32.4, platelets 3 88, neutrophils 90%. I did note the blood cultures, no growth to date. Sputum culture pending. Assessment And Plan: A 67-year-old male with: 1.Left-sided pneumonia may be viral versus bacterial. Procalcitonin is negative. Lactate is also n ormal. WBC count is elevated due to steroids. Blood cultures, no growth to date. Urine cultures ar e pending. Discontinue antibiotics. Cultures are negative. 2.Rectus sheath hematoma, nontraumatic, extension in rib cage to the pelvis. Dr. Whitney did not elena mmend any surgical intervention at this time. We will continue to monitor H and H closely. We will resume Coumadin. We will check INR. This is an initial encounter. 3.Atrial fibrillation, chronic, rate controlled. We will continue with digoxin and metoprolol. We will resume Coumadin. 4.Hyponatremia. We will monitor sodium level. We will replete fluid restriction. 5.Mixed hyperlipidemia. Continue home medications as appropriate. 6.Essential hypertension, stable. 7.Normocytic hypochromic anemia. Monitor H and H, transfuse as needed. 8.Steroid-induced leukocytosis. The patient received stress dose steroids on admission, has been as ked to discontinue. 9.Constipation. We will add MiraLax and Colace as needed. Plan: Check INR. Resume anticoagulation. Case discussed with Cardiology. Disposition: Home in the next 48 to 72 hours. /PAMELA Voice ID: [id number] Report ID: [id number]
[2018-02-18] MEDS: PIPER/TAZO/NS 3.375gm 3.375 GM/100 ML BAG IVPB SCH ×2 (00:50→08:21)
[2018-02-18] MEDS: VANCOMYCIN 1.25 GM in NA CHLORIDE 0.9% 250 ML IVPB SCH (05:00)
[2018-02-18 06:02] LABS: Absolute Lymphocytes (CBC) 1.3 K/uL (0.7-4.9); Absolute Monocytes 1.3 K/uL (0.1-1.3); Absolute Neutrophil 16.8 K/uL (1.8-8.0); Basophils % 0.1 % (0-1.3); Eosinophils % 0.4 % (0-4.4); Hematocrit 28.8 % (39.6-49.0); Lymphocytes % 6.7 % (15.3-44.8); MCH 26.8 pg (27.0-35.0); MCV 82.3 fL (80-100); MPV 6.8 fL (7.6-11.3); Monocytes % 6.6 % (3.3-12.3); RBC Red Blood Cell Count 3.49 M/uL (4.33-5.43)
[2018-02-18 06:27] LABS: Albumin 2.3 g/dL (3.4-5.0); Bilirubin Total 0.9 mg/dL (0.2-1.0); Potassium 4.7 mmol/L (3.5-5.1); Protein, Total 5.7 g/dL (6.4-8.2)
[2018-02-18] MEDS: DIGOXIN 0.125 MG TABLET PO SCH (08:19)
[2018-02-18] MEDS: NIACIN 750 MG PO SCH ×2 (08:19→20:38)
[2018-02-18] MEDS: FERROUS SULFATE 325 MG TAB PO SCH (08:19)
[2018-02-18] MEDS: BENZONATATE 100 MG CAP PO PRN ×2 (08:20→16:38)
[2018-02-18] MEDS: METOPROLOL TAR 50 MG TAB PO SCH ×2 (08:20→20:39)
[2018-02-18] MEDS: HYDROCODONE/CHLORPHEN 5 ML/OSYR PO SCH ×4 (08:20→20:38)
[2018-02-18] MEDS: SPIRONOLACTONE 25 MG TABLET PO SCH (08:20)
[2018-02-18] MEDS: PANTOPRAZOLE 40MG TABLET PO SCH (08:20)
[2018-02-18] MEDS ORDERED: BISACODYL 10 MG RECTAL SUPP PR PRN (11:11)
[2018-02-18] MEDS: DOCUSATE NA 100 MG CAP PO SCH ×2 (12:07→20:39)
[2018-02-18] MEDS: GUAIFENESIN 600 MG SA TAB PO SCH ×2 (12:08→20:38)
--- NOTE | 2018-02-18 12:31 | PN ---
Date of Progress Note: 02/18/2018 Subjective: The patient is awake, alert. Pain is much better. Objective: Vital Signs: Stable. Afebrile. On physical exam, there is no increase in the size of the rectus sheath hematoma. Laboratory Data: H and H essentially stable, gone down a little bit, but not clinically significant. Assessment: Rectus sheath hematoma in a patient on chronic anticoagulation. Recommendation: From a surgical standpoint, patient cannot be anticoagulated, just keep an eye on hi s H and H and clinically make sure the hematoma is not expanding, and we will follow the patient. On ce the anticoagulation is started and the patient is clinically stable, then he can be discharged. /MODL Voice ID: [id number] Report ID: [id number]
[2018-02-18] MEDS: HEPARIN/D5W 25,000 UNIT/500 ML BAG IV SCH (13:07)
[2018-02-18] MEDS: POLYETHYL GLY 3350 17 GM/DOSE PO PRN (16:38)
[2018-02-18] MEDS: WARFARIN SODIUM 5 MG TAB PO SCH (18:24)
--- NOTE | 2018-02-18 21:04 | CON ---
CARDIOLOGY CONSULT. Reason For Consult: Anticoagulation. History Of Present Illness: Mr. Murdock has been in atrial fib for more than a decade, probably closer to 2 decades. He has been on Coumadin since roughly a year and a half ago or 2 years ago. He underwent a repair of his tricuspid valve. It was done at the [facility]. We have no records of it, unlikely get any records of it. We do not have an echocardiogram to tell us very much about that. He has been on Coumadin rather than one of the novel oral anticoagulants. I think it might be hickman for us to do an echocardiogram and see exactly what kind of surgery he might have had. He is in the hospital because he aspirated, had a chicken bone removed from his bronchial tree. He developed pneumonia and then started coughing a lot and came to the hospital because he had intense pain in the abdomen and it was from a rectus sheath hematoma in the right rectus, large extensive one. He is now no longer having pain from it. When he came to the hospital, his INR was just 1.66. It has never been all that high. Today, it is 1.13. Heparin was started today. He does not have a history of coronary heart disease. He has a midline sternotomy from the surgery to repair the valve. I would have to say it is very unusual to repair a tricuspid valve. This is the only heart surgery he has had, so I think doing an echocardiogram would be very helpful in telling us how to help him with his anticoagulation, put him on heparin now, off Coumadin, and no longer having pain from the hematoma. I think we are in a good situation. physical exam shows no heart murmur or click, the rhythm is irregularly irregular. Thank you very much for your kind referral of Mr. Murdock. I will follow him with you. ASA Voice ID: [id number] Report ID: [id number] HEATHER
--- NOTE | 2018-02-18 21:28 | PN ---
Date of Progress Note: 02/18/2018 Subjective: The patient seen and examined. Chart reviewed and case discussed with RN, Dr. Whitney, enrico Henry. The patient is doing well. Hematoma is improving. Pain is controlled. Review of Systems: Negative except as above. Medications: List reviewed. Physical Examination: Vital Signs: Temperature 97.6, heart rate 74, blood pressure 113/59, respirations 18, O2 95% on room air. General: Awake, alert, oriented x3. Not in acute distress. Somewhat ill-appearing male. CVS: S1, S2. Irregularly irregular. Respiratory: Moving air well bilaterally. No wheezing. Gastrointestinal: Abdomen is distended. Large hematoma on the left extending from the upper quadran t towards the symphysis pubis. Extremities: No clubbing, cyanosis, or edema. Neuro: Nonfocal. Laboratory Data: Sodium 131, potassium 4.7, chloride 97, CO2 29, BUN 26, creatinine 1.1, glucose 94, calcium 7.9. AST 40, ALT 45, alkaline phosphatase 259. WBC 19.5, H and H 9.4 and 28.8, platelets 3 19, neutrophils 86%. INR 1.13. Blood cultures, no growth to date. Urine culture shows 3+ yeast, ot herwise normal quantity of willian. Assessment: A 67-year-old male with: 1.Left-sided pneumonia, likely viral, possible bacterial. WBC count elevated likely due to steroids . Blood cultures show no growth to date. Sputum cultures growing yeast. We will deescalate antibio tics. 2.Rectus sheath hematoma, nontraumatic, extension from the rib cage to the pelvis. No surgical inte rvention at this time per Dr. Whitney. Continue to monitor H and H closely. Resume Coumadin. We will start with heparin drip. INR is subtherapeutic. 3.Atrial fibrillation, chronic, rate controlled. Continue with metoprolol and digoxin. We will res tart heparin and Coumadin. 4.Hyponatremia. Continue to monitor sodium level. Sodium is 131. 5.Mixed hyperlipidemia. Continue home medications. 6.Essential hypertension, stable. 7.Normocytic hypochromic anemia. Monitor H and H. Transfuse as needed. Likely anemia of chronic d isease versus possible iron deficiency anemia. 8.Steroid-induced leukocytosis, improving. Steroids discontinued. 9.Constipation. We will add Dulcolax suppository and Colace. Plan: Continue monitoring INR. Initiate heparin drip and bridge with Coumadin. We will add Mucinex to decrease the patient's coughing which may be worsening the hematoma. /PAMELA Voice ID: [id number] Report ID: [id number]
[2018-02-19 05:28] LABS: Absolute Lymphocytes (CBC) 1.2 K/uL (0.7-4.9); Absolute Neutrophil 9.2 K/uL (1.8-8.0); Basophils % 0.5 % (0-1.3); Eosinophils % 2.8 % (0-4.4); Hematocrit 27.9 % (39.6-49.0); MCH 26.8 pg (27.0-35.0); MCV 82.1 fL (80-100); MPV 6.6 fL (7.6-11.3); Monocytes % 8.5 % (3.3-12.3); RBC Red Blood Cell Count 3.39 M/uL (4.33-5.43)
[2018-02-19 05:48] LABS: Protime INR 1.26
[2018-02-19 05:59] LABS: Albumin 2.3 g/dL (3.4-5.0); Bilirubin Total 1.3 mg/dL (0.2-1.0); Potassium 4.3 mmol/L (3.5-5.1); Protein, Total 5.5 g/dL (6.4-8.2)
--- NOTE | 2018-02-19 09:37 | RAD REPORT ---
EXAM DESCRIPTION: RAD - Chest Pa And Lat (2 Views) - 02/19/2018 6:38 am CLINICAL HISTORY: PNA Chest pain. COMPARISON: Chest Single View dated 02/15/2018; Chest Single View dated 03/12/2016; Chest Single Vie w dated 03/11/2016; Chest Pa And Lat (2 Views) dated 03/09/2016; Chest Abdomen Pelvis W Cont dated FINDINGS: Airspace opacity is present in the medial right lung base with a small right pleural effus ion, suspicious for aspiration/ pneumonia. It appear is similar to slightly improved since the compar ative study. Small left pleural effusion is noted. The heart is upper limit normal in size with molina otomy wires present. No displaced fractures. IMPRESSION: Subtle improvement in right lung base pneumonia suspected since comparative study.
[2018-02-19] MEDS: NIACIN 750 MG PO SCH ×2 (09:46→20:05)
[2018-02-19] MEDS: GUAIFENESIN 600 MG SA TAB PO SCH ×2 (09:46→20:05)
[2018-02-19] MEDS: METOPROLOL TAR 50 MG TAB PO SCH ×2 (09:47→20:05)
[2018-02-19] MEDS: SPIRONOLACTONE 25 MG TABLET PO SCH (09:47)
[2018-02-19] MEDS: HYDROCODONE/CHLORPHEN 5 ML/OSYR PO SCH ×4 (09:47→20:05)
[2018-02-19] MEDS: FERROUS SULFATE 325 MG TAB PO SCH (09:47)
[2018-02-19] MEDS: DIGOXIN 0.125 MG TABLET PO SCH (09:47)
[2018-02-19] MEDS: DOCUSATE NA 100 MG CAP PO SCH ×2 (09:48→20:05)
[2018-02-19] MEDS: PANTOPRAZOLE 40MG TABLET PO SCH (09:48)
[2018-02-19] MEDS: POLYETHYL GLY 3350 17 GM/DOSE PO PRN (09:53)
--- NOTE | 2018-02-19 13:02 | ECHO ---
HEIGHT: 5 ft 10 in WEIGHT: 164 lb 0 oz DATE OF STUDY: 02/19/[address]: Tim Henry MD 2-DIMENSIONAL: YES M.MODE: YES DOPPLER: YES COLOR FLOW: YES TDS: NO PORTABLE: NO DEFINITY: NO BUBBLE STUDY: NO DIAGNOSIS: HISTORY OF TRICUSPID VALVE REPAIR CARDIAC HISTORY: CATHERIZATION: NO SURGERY: YES PROSTHETIC VALVE: YES PACEMAKER: NO MEASUREMENTS (cm) DIASTOLIC (NORMALS) SYSTOLIC (NORMALS) IVSd 1.1 (0.6-1.2) LA Diam 4.6 (1.9-4.0) LVEF 60% LVIDd 4.3 (3.5-5.7) LVIDs 2.9 (2.0-3.5) %FS 32% LVPWd 1.1 (0.6-1.2) Ao Diam 2.7 (2.0-3.7) 2 DIMENSIONAL ASSESSMENT: RIGHT ATRIUM: DILATED LEFT ATRIUM: DILATED RIGHT VENTRICLE: DILATED LEFT VENTRICLE: NORAML TRICUSPID VALVE: NORMAL MITRAL VALVE: MITRAL ANNULAR CALCIFICATION PULMONIC VALVE: NORMAL AORTIC VALVE: NORMAL PERICARDIAL EFFUSION: NONE AORTIC ROOT: NORMAL LEFT VENTRICULAR WALL MOTION: NORMAL DOPPLER/COLOR FLOW: MODERATE TRICUSPID REGRGITATION. MILD PULMONARY HYPERTENSION. COMMENTS: MILD PULMONARY HYPERTENSION. MODERATE TRICUSPID REGRGITATION. STATUS POST TRICUSPID VALVE REPAIR, NORMAL FUNCTION. NORMAL LEFT VENTRICULAR SIZE AND FUNCTION. TECHNOLOGIST: Louis ARCHULETA
[2018-02-19] MEDS ORDERED: MAGNESIUM CITRATE 300 ML BOT PO PRN (16:54)
[2018-02-19] MEDS: WARFARIN SODIUM 5 MG TAB PO SCH (18:09)
[2018-02-19] MEDS: HEPARIN/D5W 25,000 UNIT/500 ML BAG IV SCH (18:10)
--- NOTE | 2018-02-19 21:46 | PN ---
Date of Progress Note: 02/19/2018 The patient was seen and examined. Chart reviewed and case discussed with RN and Dr. Whitney as well a s Dr. Packer. The patient states his pain has resolved. He does have some distention of his abdome n, which is uncomfortable during bending and worse with cough. Review of Systems: Negative except as above. Medications: List reviewed. Physical Examination: Vital Signs: Temperature 97.4, heart rate 80, blood pressure 118/70, respirations 20, O2 98% on room air. General: Awake, alert, oriented x3, not in any acute distress. Elderly male. CV: S1, S2. Irregularly irregular. Peripheral pulses present. Respiratory: Moving air well bilaterally. Abdomen: Mildly distended. Hematoma present with ecchymosis also present. Distension has decreased from previous. Bowel sounds positive. Extremities: No clubbing, cyanosis, edema. Neuro: Nonfocal. Laboratory Data: Sodium 132, potassium 4.3, chloride 98, CO2 29, BUN 22, creatinine 1, glucose 100, calcium 7.8, AST 30, ALT 43, alkaline phosphatase 253, albumin 2.3. WBC 11.7, H and H 9.1 and 27.9, platelets 290, neutrophils 78%. INR 1.26. Blood cultures, no growth to date. Echocardiogram shows EF of 50%, mild pulmonary hypertension, moderate tricuspid regurgitation, status post tricuspid valve repair. Chest x-ray, personally reviewed shows sudden improvement in right lung base pneumonia susp ected in comparative study. Assessment And Plan: A 67-year-old male with: 1.Left-sided pneumonia. WBC count essentially normalized secondary to stress-induced leukocytosis. Blood cultures showing no growth to date. Sputum culture is growing yeast. Antibiotics were discon tinued. Chest x-ray shows improvement. 2.Rectus sheath hematoma, nontraumatic, extends from the ribcage to the pelvis. No surgical interve ntion recommended at this time. Dr. Whitney will continue to monitor H and H and stated to resume Coum amador. 3.Atrial fibrillation, chronic, rate controlled. Continue metoprolol and digoxin. The patient is n ow on heparin drip, being bridged to Coumadin. INR is still therapeutic. 4.Subtherapeutic INR. We will continue with daily INR monitoring and Coumadin. 5.Hyponatremia, improving. Continue to monitor. 6.Mixed hyperlipidemia. 7.Essential hypertension stable on home medications. 8.Normocytic hypochromic anemia. Transfuse as needed. We will monitor H and H, likely anemia due t o iron deficiency. 9.Steroid induced leukocytosis, eventually resolved. 10.Constipation. The patient still has not had a bowel movement. We will continue with suppositori es and add magnesium citrate p.r.n. 11.Mild pulmonary hypertension. 12.Moderate tricuspid regurgitation, status post tricuspid valve repair. 13.Continue close monitoring. Discharge once INR is above 2. /PAMELA Voice ID: [id number] Report ID: [id number]
[2018-02-20 05:09] LABS: Absolute Monocytes 0.8 K/uL (0.1-1.3); Absolute Neutrophil 9.2 K/uL (1.8-8.0); Basophils % 0.6 % (0-1.3); Eosinophils % 4.2 % (0-4.4); Hematocrit 28.6 % (39.6-49.0); Lymphocytes % 8.5 % (15.3-44.8); MCH 26.8 pg (27.0-35.0); MCV 82.8 fL (80-100); MPV 6.8 fL (7.6-11.3); Monocytes % 6.9 % (3.3-12.3); RBC Red Blood Cell Count 3.45 M/uL (4.33-5.43)
[2018-02-20 05:10] LABS: Protime INR 1.54
[2018-02-20 05:26] LABS: Potassium 4.7 mmol/L (3.5-5.1)
[2018-02-20 07:56] LABS: Blood Morphology Comment NOT SEEN (NOT SEEN); Platelet Estimate ADEQ
[2018-02-20] MEDS: SPIRONOLACTONE 25 MG TABLET PO SCH (09:00)
[2018-02-20] MEDS: NIACIN 750 MG PO SCH ×2 (09:16→20:55)
[2018-02-20] MEDS: PANTOPRAZOLE 40MG TABLET PO SCH (09:16)
[2018-02-20] MEDS: FERROUS SULFATE 325 MG TAB PO SCH (09:16)
[2018-02-20] MEDS: METOPROLOL TAR 50 MG TAB PO SCH ×2 (09:17→20:56)
[2018-02-20] MEDS: DIGOXIN 0.125 MG TABLET PO SCH (09:18)
[2018-02-20] MEDS: GUAIFENESIN 600 MG SA TAB PO SCH ×2 (09:18→20:56)
[2018-02-20] MEDS: HYDROCODONE/CHLORPHEN 5 ML/OSYR PO SCH ×4 (09:19→20:55)
[2018-02-20] MEDS: DOCUSATE NA 100 MG CAP PO SCH ×2 (09:19→20:56)
[2018-02-20] MEDS: BENZONATATE 100 MG CAP PO PRN (09:25)
--- NOTE | 2018-02-20 15:08 | PN ---
Date of Progress Note: 02/20/2018 Subjective: The patient is seen and examined. Chart reviewed, and case discussed with RN. The patient is doing well. No complaints. Pain from hematoma and discomfort are tolerable. Treatment plan explained. All questions answered. Review of Systems: Negative except as above. Medications: List reviewed. Physical Examination: Vital Signs: Temperature 97.6, heart rate 98, blood pressure 109/60, respirations 18, O2 of 98% on room air. GENERAL: Awake, alert, oriented x3, not in any acute distress. An elderly male. CV: S1 and S2. Irregularly irregular. Peripheral pulses present. Respiratory: Moving air well bilaterally. No wheezing. Gastrointestinal: Abdomen is soft. Mild distention with hematoma present. No guarding or rigidity. Bowel sounds are positive. Extremities: No clubbing, cyanosis, or edema. Neurologic: Nonfocal. Laboratory Data: Sodium 132, potassium 4.7, chloride 99, CO2 of 28, BUN 17, creatinine 0.9, glucose 109, calcium 7.9. WBC 11.5, H and H 9.2 and 28.6, platelets 251, neutrophils 79.8%. Blood cultures, no growth to date. Assessment And Plan: A 67-year-old male with: 1. Left-sided pneumonia. WBC count 11.5, essentially normal. Blood cultures are negative. Chest x-ray showed improvement clinically. The patient does have some cough and sputum production, improving. 2. Rectus sheath hematoma, nontraumatic, extends from ribcage to the pelvis. No surgical intervention at this time. We will continue to monitor hemoglobin and hematocrit. The patient tolerating Coumadin. 3. Atrial fibrillation, chronic, rate controlled. Continue metoprolol and digoxin, heparin drip and Coumadin. INR improving, however, still subtherapeutic. Goal is to get INR above 2. 4. Hyponatremia, improving. Continue to monitor. Continue fluid restriction. 5. Mixed hyperlipidemia. Continue niacin. 6. Essential hypertension, stable. Continue home medications. 7. Normocytic hypochromic anemia, likely anemia of iron deficiency. Monitor hemoglobin and hematocrit, transfuse if needed. 8. Constipation. The patient did have a bowel movement yesterday. We will continue bowel regimen. 9. Mild pulmonary hypertension, stable. 10. Moderate tricuspid regurgitation, status post tricuspid valve repair, porcine valve. 11. Gastrointestinal and deep venous thrombosis prophylaxis addressed. Plan: Discharge once INR is above 2 and symptoms improved clinically likely in the next 24 to 48 hours. /PAMELA Voice ID: [id number] Report ID: [id number] MTDD
[2018-02-20] MEDS: WARFARIN SODIUM 5 MG TAB PO SCH (16:59)
[2018-02-20] MEDS: HEPARIN/D5W 25,000 UNIT/500 ML BAG IV SCH (21:04)
[2018-02-21 05:35] LABS: Absolute Lymphocytes (CBC) 1.3 K/uL (0.7-4.9); Absolute Neutrophil 9.1 K/uL (1.8-8.0); Basophils % 0.7 % (0-1.3); Eosinophils % 3.8 % (0-4.4); Hematocrit 28.2 % (39.6-49.0); Lymphocytes % 10.5 % (15.3-44.8); MCH 26.9 pg (27.0-35.0); MCV 82.5 fL (80-100); MPV 6.6 fL (7.6-11.3); Monocytes % 8.6 % (3.3-12.3); RBC Red Blood Cell Count 3.42 M/uL (4.33-5.43)
[2018-02-21 05:39] LABS: Protime INR 1.7
[2018-02-21 05:45] LABS: BUN Blood Urea Nitrogen 16 mg/dL (7-18); Bicarbonate 29 mmol/L (21-32); Glucose Level 100 mg/dL (74-106); Magnesium 2.1 mg/dL (1.8-2.4); Phosphorus 2.7 mg/dL (2.5-4.9); Potassium 4.8 mmol/L (3.5-5.1); Sodium Level 132 mmol/L (136-145)
[2018-02-21 08:50] VITALS: O2SAT 96
[2018-02-21] MEDS: DOCUSATE NA 100 MG CAP PO SCH ×2 (10:08→20:53)
[2018-02-21] MEDS: GUAIFENESIN 600 MG SA TAB PO SCH ×2 (10:08→20:53)
[2018-02-21] MEDS: NIACIN 750 MG PO SCH ×2 (10:08→20:53)
[2018-02-21] MEDS: PANTOPRAZOLE 40MG TABLET PO SCH (10:08)
[2018-02-21] MEDS: SPIRONOLACTONE 25 MG TABLET PO SCH (10:09)
[2018-02-21] MEDS: METOPROLOL TAR 50 MG TAB PO SCH ×2 (10:09→20:58)
[2018-02-21] MEDS: DIGOXIN 0.125 MG TABLET PO SCH (10:09)
[2018-02-21] MEDS: FERROUS SULFATE 325 MG TAB PO SCH (10:10)
[2018-02-21] MEDS: HYDROCODONE/CHLORPHEN 5 ML/OSYR PO SCH ×4 (10:10→20:53)
[2018-02-21] MEDS: POLYETHYL GLY 3350 17 GM/DOSE PO PRN (17:11)
[2018-02-21] MEDS: WARFARIN SODIUM 5 MG TAB PO SCH (17:11)
--- NOTE | 2018-02-21 17:28 | PN ---
Date of Progress Note: 02/21/2018 History: The patient is seen and examined. Chart reviewed and case discussed with RN. The patient' s is at the bedside. Unfortunately, her brother is on his bed due to ALS, wanting to know if the patient is ready for discharge. Unfortunately, his INR is subtherapeutic and he is not safe f or discharge. The patient denies any significant pain. Still having some difficulty with movement a nd does have pain with movement, especially bending. Review of Systems: Negative except as above. Medications: List reviewed. Physical Examination: Vital Signs: Temperature 97.3, heart rate 83, blood pressure 109/58, respirations 20, O2 97% on room air. General: Awake, alert, oriented x3. No acute distress. Elderly male. CV: S1 and S2. Irregularly irregular. Peripheral pulses present. Respiratory: Moving air well bilaterally. No wheezing. Gastrointestinal: Abdomen is soft. Ecchymoses present. The patient does have some mild distention due to hematoma. Mild tenderness to palpation. Bowel sounds positive. Extremities: No clubbing, cyanosis, or edema. Neuro: No focal. Laboratory Data: Sodium 132, potassium 4.8, chloride 99, CO2 29, BUN 16, creatinine 0.8, glucose 100 , calcium 7.8, phosphorus 2.7, magnesium 2.1. WBC 11.9, H and H 9.2 and 28.2, platelets 239, neutrop hils 76%. Assessment And Plan: A 67-year-old male with: 1.Rectus sheath hematoma, nontraumatic, extension from the rib cage to the pelvis. No surgical inte rvention as it is improving. Hemoglobin and hematocrit are stable. 2.Left-sided pneumonia, community-acquired, improving. No further congestion. Cough is very minima l, not bringing up any sputum. Cultures negative to date. Antibiotics have been discontinued. 3.Atrial fibrillation, chronic, rate controlled. Continue digoxin and metoprolol. The patient now is back on heparin with bridging with Coumadin. 4.Neutrophilic leukocytosis, may be secondary to residual steroids after steroid effect. We will co ntinue to monitor. We will check procalcitonin. Rule out infectious etiology. 5.Hyponatremia, stable. We will monitor. 6.Hypocalcemia. Corrected calcium is normal given his low albumin. 7.Severe protein-calorie malnutrition. Albumin is 2.3. 8.Mixed hyperlipidemia. Continue statin. 9.Essential hypertension, stable. 10.Normocytic hypochromic anemia. Monitor hemoglobin and hematocrit, transfuse as needed. 11.Constipation. We will add magnesium citrate p.r.n. 12.Mild pulmonary hypertension. 13.Moderate tricuspid regurgitation, status post repair with porcine valve. 14.Gastrointestinal and deep venous thrombosis prophylaxis addressed. Plan: Continue heparin drip with Coumadin. We will have to be cautious given his large hematoma. W e will be conservative in terms of Coumadin dose. INR has been steadily increasing. We will expect INR to be around 2 tomorrow. Discharge once INR is in therapeutic range. /PAMELA Voice ID: [id number] Report ID: [id number]
[2018-02-21] MEDS: HEPARIN/D5W 25,000 UNIT/500 ML BAG IV SCH (20:55)
[2018-02-22 06:00] LABS: Protime INR 2.08
[2018-02-22 06:02] LABS: ALT/SGPT 47 U/L (12-78); AST/SGOT 48 U/L (15-37); Albumin 2.3 g/dL (3.4-5.0); Alkaline Phosphatase 311 U/L (45-117); BUN Blood Urea Nitrogen 16 mg/dL (7-18); Bicarbonate 26 mmol/L (21-32); Bilirubin Total 1.4 mg/dL (0.2-1.0); Glucose Level 98 mg/dL (74-106); Potassium 4.7 mmol/L (3.5-5.1); Protein, Total 5.5 g/dL (6.4-8.2); Sodium Level 134 mmol/L (136-145)
[2018-02-22 06:05] LABS: Absolute Lymphocytes (CBC) 1.1 K/uL (0.7-4.9); Absolute Monocytes 0.9 K/uL (0.1-1.3); Absolute Neutrophil 6.7 K/uL (1.8-8.0); Basophils % 0.7 % (0-1.3); Eosinophils % 4.5 % (0-4.4); Hematocrit 29.1 % (39.6-49.0); Lymphocytes % 12.2 % (15.3-44.8); MCH 27.1 pg (27.0-35.0); MCV 82.8 fL (80-100); MPV 6.7 fL (7.6-11.3); RBC Red Blood Cell Count 3.51 M/uL (4.33-5.43)
[2018-02-22] MEDS: DOCUSATE NA 100 MG CAP PO SCH (08:33)
[2018-02-22] MEDS: NIACIN 750 MG PO SCH (08:33)
[2018-02-22] MEDS: HYDROCODONE/CHLORPHEN 5 ML/OSYR PO SCH (08:33)
[2018-02-22] MEDS: GUAIFENESIN 600 MG SA TAB PO SCH (08:33)
[2018-02-22] MEDS: FERROUS SULFATE 325 MG TAB PO SCH (08:34)
[2018-02-22] MEDS: DIGOXIN 0.125 MG TABLET PO SCH (08:34)
[2018-02-22] MEDS: METOPROLOL TAR 50 MG TAB PO SCH (08:34)
[2018-02-22] MEDS: PANTOPRAZOLE 40MG TABLET PO SCH (08:34)
[2018-02-22] MEDS: SPIRONOLACTONE 25 MG TABLET PO SCH (08:35)
[2018-02-22 08:39] VITALS: BP 99/64
[2018-02-22] MEDS: POLYETHYL GLY 3350 17 GM/DOSE PO PRN (08:39)
[2018-02-22 09:11] VITALS: TEMP 97.1
[2018-02-22] MEDS ORDERED: MAGNESIUM CITRATE 300 ML BOT PO PRN (09:57)
--- NOTE | 2018-02-23 04:56 | DS ---
Date of Discharge: 02/22/2018 Consultants: Dr. Henry, Cardiology; Dr. Packer, Cardiology; Dr. Whitney, General Surgery. Procedures: None. Admitting Diagnoses: 1.Rectus sheath hematoma. 2.Pneumonia. 3.Hemoptysis. 4.Pleural effusion. 5.Atrial fibrillation, chronic. 6.Hyperlipidemia. 7.Hypertension. Discharge Diagnoses: 1.Rectus sheath hematoma, improving. 2.Left-sided pneumonia, community-acquired, improved. 3.Atrial fibrillation, chronic, rate controlled, on Coumadin. 4.Neutrophilic leukocytosis, resolved. 5.Hyponatremia, stable. 6.Hypocalcemia, corrected. 7.Severe protein-calorie malnutrition. Albumin 2.3. 8.Mixed hyperlipidemia, statin. 9.Essential hypertension, stable. 10.Normocytic hypochromic anemia, stable. 11.Constipation. 12.Mild pulmonary hypertension. 13.Moderate tricuspid regurgitation, status post repair with porcine valve. Hospital Course: The patient is a 67-year-old male who was admitted to the hospital with a rectus sh eath hematoma, found on CT scan which was done due to abdominal pain. The hematoma was on the right side, large 11 x 8 cm, running the entire length from the muscle of the rib cage to the pubic symphys is. The patient was also found to have right middle lobe pneumonia and partial atelectasis. The pat ient is on blood thinners, however, his INR at that point was subtherapeutic. Coumadin was held. Dr Bola Whitney with General Surgery was consulted. He did not recommend any surgical intervention at this t [facility]. The patient's hematoma improved. He did develop some leukocytosis, which was likely due to IV steroids and possibly the pneumonia. The patient's leukocytosis resolved. His pneumonia improved. Chest x-ray showed improvement. The patient was then seen by Cardiology. Echocardiogram was done, w [facility] [place] [facility] showed EF of 60%. Mild pulmonary hypertension, moderate tricuspid regurgitation, status post va lve repair. The patient was then started on heparin drip and was restarted on Coumadin. The patient was started on conservative dose of Coumadin with slow raising of the INR due to rectus sheath hemat prasad, which was very large and due to risk of worsening bleeding. The patient's INR did improve and w as therapeutic. Heparin drip was stopped and the patient was cleared for discharge. The patient oth erwise did well. He did have some electrolyte abnormalities, which were corrected. Also, he reporte d significant constipation, however, with a bowel regimen, did have a bowel movement. The patient di d have significant amount of cough, which was worsening the hematoma. He was started on Tussionex, T essalon Perles, Mucinex, which improved his cough. The patient understands that his cough will likel y persist for weeks, it will be the last thing to go. He will need to continue with abdominal binder to prevent stress on the abdominal cavity, worsening the hematoma. Followup: The patient will be need to follow up with primary care physician in 2 to 3 days and have INR rechecked. Follow up with surgeon, Dr. Whitney in 2 weeks. Follow up with car runner, Dr. Michelle bell in 2 weeks. Return to ER for worsening condition. Diet: Heart healthy, Coumadin restricted diet. Activity: As tolerated. Medications: As per medication reconciliation list. Physical Examination: General: Awake, alert, oriented x3, not in any acute distress. Elderly male. CV: S1, S2. Irregularly irregular. Peripheral pulses present. Respiratory: Moving air well bilaterally. Abdomen: Mild distention due to hematoma. No tenderness to palpation. Ecchymoses present. Extremities: No clubbing, cyanosis, edema. Neuro: No focal. Total time spent discharging the patient was 41 minutes. EBONY Voice ID: [id number] Report ID: [id number]
== END 2018-02-22 11:41 | disposition home or self-care (01) | DRG 193 ==
LOC: ER 14:13 → ERHOLD 16:52 → 4TH 19:54
PROVIDERS: ADMIT Family Medicine; ATTEND Family Medicine
DX: J18.9 Pneumonia, unspecified organism (principal); E43 Unspecified severe protein-calorie malnutrition; J98.11 Atelectasis; J90 Pleural effusion, not elsewhere classified; R04.2 Hemoptysis; M79.81 Nontraumatic hematoma of soft tissue; I48.91 Unspecified atrial fibrillation; Z79.01 Long term (current) use of anticoagulants; G62.9 Polyneuropathy, unspecified; Z86.718 Personal history of other venous thrombosis and embolism; I48.2 Chronic atrial fibrillation; D64.9 Anemia, unspecified; D72.828 Other elevated white blood cell count; T38.0X5A Adverse effect of glucocorticoids and synthetic analogues, initial encounter; Y92.230 Patient room in hospital as the place of occurrence of the external cause; K59.00 Constipation, unspecified; E78.2 Mixed hyperlipidemia; R79.1 Abnormal coagulation profile; I10 Essential (primary) hypertension; I36.1 Nonrheumatic tricuspid (valve) insufficiency; I27.20 Pulmonary hypertension, unspecified; E83.51 Hypocalcemia; Z68.23 Body mass index [BMI] 23.0-23.9, adult
CPT/HCPCS: 36415; 71045; 71046; 71260; 74177; 80048; 80053; 80076; 80202; 81003; 81015; 82140; 82550; 82553; 83605; 83690; 83735; 84100; 84145; 84484; 85025; 85379; 85610; 85730; 86140; 86850; 86900; 86901; 87040; 87070; 87205; 93005; 93306; 94760; 96361; 96374; 96375; 99285; J0696; J1170; J2543; J2930; J3010; J3430; J7030; Q9967